=== PATIENT | male | born 1995 | race American Indian/Alaskan Native ===

== ENCOUNTER 2017-04-26 10:45 | Emergency (ER) | payer SELFPAY ==
[2017-04-26] MEDS ORDERED: DUONEB *Not for PRN Use IH ONE (11:35)
--- NOTE | 2017-04-26 11:49 | Emergency Department Report ---
Minor Respiratory - HPI Chief Complaint: Upper Respiratory Infection Stated Complaint: wheezing Time Seen by Provider: 04/26/17 11:22 Duration: 3 Days Severity: mild Minor Respiratory: Yes Sore Throat, Yes Cough, No Rhinorrhea, No Able to Tolerate Fluids, No Ear Pain, No Sick Contacts, No Hemoptysis, No Chest Pain, No Shortness of Breath, No Fever Other History: unprotected sex last week w dysuria and worried he has std ED Review of Systems ROS: Stated complaint: CHEST PAIN /HEADACHES 3+ DAYS Other details as noted in HPI Comment: Unobtainable due to pts medical conditions Constitutional: no symptoms reported, see HPI. denies: chills Eyes: as per HPI. denies: eye pain ENT: as per HPI, throat pain. denies: ear pain, dental pain, hearing loss, epistaxis Respiratory: no symptoms reported, see HPI, cough. denies: orthopnea Cardiovascular: as per HPI. denies: chest pain, palpitations, dyspnea on exertion, orthopnea Endocrine: no symptoms reported, see HPI. denies: excessive sweating, flushing , intolerance to cold, intolerance to heat Gastrointestinal: as per HPI. denies: abdominal pain, nausea, vomiting Genitourinary: as per HPI, dysuria. denies: urgency Musculoskeletal: as per HPI. denies: back pain Skin: as per HPI. denies: rash, lesions Neurological: as per HPI. denies: headache, weakness Psychiatric: as per HPI. denies: anxiety, depression Hematological/Lymphatic: as per HPI. denies: easy bleeding ED Past Medical Hx - Past Medical History Previous Medical History?: No - Surgical History Past Surgical History?: No - Social History Smoking Status: Never Smoker Substance Use Type: None - Medications Home Medications: Home Medications Medication Instructions Recorded Confirmed Last Taken Type Fluticasone [Flonase] 1 spray NS QDAY #1 bottle 04/26/17 Unknown Rx Minor Respiratory Exam - Exam General: Vital signs noted. No distress. Alert and acting appropriately. HEENT: Yes Pharyngeal Erythema, Yes Moist Mucous Membranes, No Pharyngeal Exudates, No Rhinorrhea, No Conjuctival Injection, No Frontal Tenderness, No Maxillary Tenderness Ear: Neither TM Bulge, Neither TM Erythema, Neither EAC Pain, Neither EAC Discharge Neck: Yes Supple, No Adenopathy Lungs: Yes Good Air Exchange, Yes Wheezes, Yes Cough, No Ronchi, No Stridor, No Labored Respirations, No Retractions, No Use of Accessory Muscles, No Other Abnormal Lung Sounds Heart: Yes Regular, No Murmur Abdomen: Yes Normal Bowel Sounds, No Tenderness, No Peritoneal Signs Skin: No Rash, No Edema Neurologic: Alert and oriented, no deficits. Musculoskeletal: Unremarkable. ED Course Vital Signs 04/26/17 10:59 Temperature 98.6 F Pulse Rate 73 Respiratory 18 Rate O2 Sat by Pulse 100 Oximetry - Reevaluation(s) Reevaluation #1: 04/26/17 13:01 rt tx w pt then stating he feels better xray neg vss non toxic ambulatory wo difficulty. pt came w s/s urti and wheezing on exam then he said "by the way, not to get to personal, but I tingle when I urinate." new partner slight dc no test pain no abd pain no fever no cva tenderness ua noted tx empirac. for std pt educated on save sex ED Medical Decision Making - EKG Data EKG shows normal: sinus rhythm - Radiology Data Radiology results: report reviewed, image reviewed - Medical Decision Making urti non toxic appearing sti w high risk exposure Critical care attestation.: If time is entered above; I have spent that time in minutes in the direct care of this critically ill patient, excluding procedure time. ED Disposition Clinical Impression: Upper respiratory infection, Wheezing, Dysuria Disposition: DC-01 TO HOME OR SELFCARE Is pt being admited?: No Does the pt Need Aspirin: No Condition: Stable Instructions: Safe Sex (ED), Upper Respiratory Infection (ED), Reactive Airways Disease (ED) Additional Instructions: rest fluids safe sex meds as ordered today follow up pcp next week for recheck motrin or tylenol for pain or fever delsym over the counter for cough Prescriptions: Fluticasone [Flonase] 1 spray NS QDAY #1 bottle Referrals: PRIMARY CARE, [Primary Care Provider] - 3-5 Days CHIRAG EGAN MD [Staff Physician] - 3-5 Days Time of Disposition: 13:01
--- NOTE | 2017-04-26 12:53 | XRay Report ---
CHEST 2 VIEWS INDICATION: Cough, wheeze. COMPARISON: 03/02/2016. FINDINGS: PA and lateral chest radiographs demonstrates stable cardiomediastinal silhouette. Clear lungs. Intact bones. CONCLUSION: No acute disease in the chest. Thank you for the opportunity to participate in this patient's care.
[2017-04-26 13:50] LABS: Bacteria,Urine 1+ /HPF (Negative); Bilirubin,Urine NEG (Negative); Blood,Urine NEG (Negative); Ketones,Urine NEG (Negative); Leukocyte Esterase,Urine MOD (Negative); Mucus,Urine 3+ /HPF; Nitrite,Urine NEG (Negative); Urobilinogen,Urine < 2.0 mg/dL (<2.0)
[2017-04-26 13:51] LABS: WBC,Urine > 182.0 /HPF (0.0-6.0)
[2017-04-26] MEDS ORDERED: ROCEPHIN IM ONE (13:53)
[2017-04-26] MEDS ORDERED: XYLOCAINE 1% MPF 5 mL INFILTRATI ONE (13:53)
[2017-04-26] MEDS ORDERED: ZITHROMAX PO ONE (13:54)
== END 2017-04-26 14:54 | disposition home or self-care (01) ==
LOC: ED 10:45
DX: J06.9 Acute upper respiratory infection, unspecified (principal); R30.0 Dysuria
CPT/HCPCS: 71020; 81001; 93005; 93010; 96372; 99284; J0696; J2930